=== PATIENT | male | born 1970 | race African-American/Black ===

== ENCOUNTER 2018-02-19 08:29 | Emergency (ER) | payer OTHER ==
[~2018-02-19] VITALS: Ht 177.8 cm; Wt 101.2 kg
[~2018-02-19 08:29] MED LIST: ATOR40TA59 PO; FAMO20TA5 PO; INSU100I17 SQ; INSU100I27 SQ
[2018-02-19 09:14] VITALS: BP 159/93
--- NOTE | 2018-02-19 09:23 | PHYS DOC ---
Past Medical History Past Medical History: Diabetes-Type II Past Surgical History: Other Additional Past Surgical Histo: LEFT SHOULDER SX, VASECTOMY Alcohol Use: Occasionally Drug Use: None Adult General Chief Complaint Chief Complaint: LOWER EXT PAIN HPI HPI Patient is a 47 year old male who presents with right knee pain started last night and melena night and him up. His pain a 10 out of 10 and states is worse with movement. He states that 6 months ago he had tendinitis in that knee was fine after it healed. Patient denies any injury or any new activity. Patient takes insulin, towards the statin, famotidine and states that his kidneys are starting to fail so he is unable to take any pain medicine. Patient states he is needing a work excuse. Review of Systems Review of Systems Constitutional: Denies fever or chills [] Eyes: Denies change in visual acuity, redness, or eye pain [] HENT: Denies nasal congestion or sore throat [] Respiratory: Denies cough or shortness of breath [] Cardiovascular: No additional information not addressed in HPI [] GI: Denies abdominal pain, nausea, vomiting, bloody stools or diarrhea [] : Denies dysuria or hematuria [] Musculoskeletal: Denies back pain. Right knee joint pain [] Integument: Denies rash or skin lesions [] Neurologic: Denies headache, focal weakness or sensory changes [] Endocrine: Denies polyuria or polydipsia [] All other systems were reviewed and found to be within normal limits, except as documented in this note. Current Medications Current Medications Current Medications Medications (Trade) Dose Ordered Sig/Mumtaz Start Time Stop Time Status Last Admin Dose Admin Dexamethasone (Decadron) 8 mg 1X ONCE 02/19/18 09:30 02/19/18 09:37 DC 02/19/18 09:42 8 MG Allergies Allergies Allergies Coded Allergies Type Severity Reaction Last Updated Verified No Known Drug Allergies 05/04/17 No Physical Exam Physical Exam Constitutional: Well developed, well nourished, no acute distress, non-toxic appearance. [] HENT: Normocephalic, atraumatic, bilateral external ears normal, oropharynx moist, no oral exudates, nose normal. [] Eyes: PERRLA, EOMI, conjunctiva normal, no discharge. [] Neck: Normal range of motion, no tenderness, supple, no stridor. [] Cardiovascular:Heart rate regular rhythm, no murmur [] Lungs & Thorax: Bilateral breath sounds clear to auscultation [] Abdomen: Bowel sounds normal, soft, no tenderness, no masses, no pulsatile masses. [] Skin: Warm, dry, no erythema, no rash. [] Back: No tenderness, no CVA tenderness. [] Extremities: No tenderness, no cyanosis, no clubbing, right knee ROM intact but painful, right knee 1-2+ edema. [] Neurologic: Alert and oriented X 3, normal motor function, normal sensory function, no focal deficits noted. [] Psychologic: Affect normal, judgement normal, mood normal. [] Current Patient Data Vital Signs Vital Signs Date Time Temp Pulse Resp B/P (MAP) Pulse Ox O2 Delivery O2 Flow Rate FiO2 02/19/18 09:14 98.1 72 18 159/93 (115) 97 Room Air 98.1 EKG EKG [] Radiology/Procedures Radiology/Procedures Right knee Impressions: [facility] [address] [place], [place] [id number] IMAGING REPORT Signed PATIENT: ANA PAULA WHEELER ACCOUNT: [id number] : 1970 LOCATION: ER AGE: 47 SEX: M EXAM STATUS: REG ER ORD. PHYSICIAN: JOSE M SOLOMON APRN REASON: pain, swelling PROCEDURE: KNEE RIGHT 4V Examination: 4 views of the right knee HISTORY: History of right knee pain, right knee tendinitis COMPARISON: None available FINDINGS: The alignment of the knee joint grossly appears unremarkable.Small knee joint effusion is identified. Minimal joint space loss identified in the medial compartment. There is no acute fracture or dislocation identified. IMPRESSION: 1. No acute osseous findings. Small knee joint effusion. 2. Mild degenerative changes medial compartment. Electronically signed by: Luis Mon MD (02/19/2018 10:00 AM) [id number] DICTATED and SIGNED BY: LUIS MON MD DATE: 02/19/18 0954 Course & Med Decision Making Course & Med Decision Making Patient is a 47 year old male who presents with right knee pain started last night and melena night and him up. His pain a 10 out of 10 and states is worse with movement. He states that 6 months ago he had tendinitis in that knee was fine after it healed. Patient denies any injury or any new activity. Patient takes insulin, towards the statin, famotidine and states that his kidneys are starting to fail so he is unable to take any pain medicine. Patient states he is needing a work excuse. Return with steady gait. Patient drove himself to the ED today. Right knee is 1-2+ edema compared to the left knee. Patient can bend the knee and extend the knee but is painful. There is no ligament laxity. Popiteal pulse present. There is no pedal or ankle edema. Alert and oriented. Skin pink warm and dry. Joint is not hot to touch or red. Xray shows 1. No acute osseous findings. Small knee joint effusion. 2. Mild degenerative changes medial compartment. Patient follow-up with his primary care doctor. Try using ice. Dragon Disclaimer Dragon Disclaimer This electronic medical record was generated, in whole or in part, using a voice recognition dictation system. Departure Departure Impression: Primary Impression: Arthritis of knee Disposition: 01 HOME, SELF-CARE Condition: STABLE Referrals: UNKNOWN PCP NAME (PCP) Patient Instructions: Arthritis, Degenerative-Brief Additional Instructions: Call doctor today for follow-up care. Try using ice and elevation. JOSE M SOLOMON APRN Feb 19, 2018 09:23
[2018-02-19] MEDS ORDERED: DEXAMETHASONE 4 MG TABLET PO ONE (09:30)
--- NOTE | 2018-02-19 10:04 | RAD ---
Examination: 4 views of the right knee HISTORY: History of right knee pain, right knee tendinitis COMPARISON: None available FINDINGS: The alignment of the knee joint grossly appears unremarkable.Small knee joint effusion is identified. Minimal joint space loss identified in the medial compartment. There is no acute fracture or dislocation identified. IMPRESSION: 1. No acute osseous findings. Small knee joint effusion. 2. Mild degenerative changes medial compartment. Electronically signed by: Luis Mon MD (02/19/2018 10:00 AM) [facility]
== END 2018-02-19 10:22 | disposition home or self-care (01) ==
LOC: ER 08:29
DX: M17.11 Unilateral primary osteoarthritis, right knee (principal); E11.9 Type 2 diabetes mellitus without complications
CPT/HCPCS: 73564; 99283; J8540

== ENCOUNTER 2019-12-30 13:22 | Emergency (ER) | payer BC, OTHER ==
[~2019-12-30] VITALS: Ht 177.8 cm; Wt 98.0 kg
[2019-12-30 13:26] VITALS: BP 127/92
[2019-12-30] MEDS ORDERED: METH4TAB2 PO (13:31)
[2019-12-30] MEDS ORDERED: DIAZ5TAB PO (13:31)
[2019-12-30] MEDS ORDERED: DICL50TA2 PO (13:31)
[2019-12-30] MEDS ORDERED: NAPROXEN 500 MG TABLET PO STA (13:32)
--- NOTE | 2019-12-30 13:32 | PHYS DOC ---
Past Medical History Past Medical History: Diabetes-Type II Past Surgical History: Other Additional Past Surgical Histo: LEFT SHOULDER SX, VASECTOMY Smoking Status: Never Smoker Alcohol Use: Occasionally Drug Use: None General Adult EDM: Chief Complaint: NECK PAIN HPI: HPI: Patient is a 49 year [id number] male patient presenting to the ED today with mild posterior and left lateral neck pain that began this morning when he got up. Patient states the pain is worse when rotating his neck to the left side. Denies any fever, denies any nausea vomiting. Denies any injuries. Denies any pain radiating to bilateral upper extremities no numbness or tingling to bilate ral upper extremities. He states the pain got worse today at work and had to come to the emergency room. Review of Systems: Review of Systems: Constitutional: Denies fever or chills. [] Musculoskeletal: Reports neck pain Integument: Denies rash. [] Neurologic: Denies headache, focal weakness or sensory changes. [] Psychiatric: Denies depression or anxiety. [] Heart Score: Risk Factors: Risk Factors: DM, Current or recent (<one month) smoker, HTN, HLP, family h istory of CAD, obesity. Risk Scores: Score 0 - 3: 2.5% MACE over next 6 weeks - Discharge Home Score 4 - 6: 20.3% MACE over next 6 weeks - Admit for Clinical Observation Score 7 - 10: 72.7% MACE over next 6 weeks - Early Invasive Strategies Allergies: Allergies: Allergies Coded Allergies Type Severity Reaction Last Updated Verified No Known Drug Allergies 05/04/17 No Physical Exam: PE: Constitutional: Well developed, well nourished, no acute distress, non-toxic appearance. [] HENT: Normocephalic, atraumatic, bilateral external ears normal, oropharynx moist, no oral exudates, nose normal. [] Eyes: PERRLA, EOMI, conjunctiva normal, no discharge. [] Neck: No obvious cervical deformity noted, paraspinal muscles tenderness on palpation of the left lateral cervical spine no tenderness, supple, no stridor. [] Cardiovascular:Heart rate regular rhythm, no murmur [] Lungs & Thorax: Bilateral breath sounds clear to auscultation [] Abdomen: Bowel sounds normal, soft, no tenderness, no masses, no pulsatile masses. [] Skin: Warm, dry, no erythema, no rash. [] Back: No tenderness, no CVA tenderness. [] Extremities: No tenderness, no cyanosis, no clubbing, ROM intact, no edema. [] Neurologic: Alert and oriented X 3, normal motor function, normal sensory function, no focal deficits noted. [] Psychologic: Affect normal, judgement normal, mood normal. [] EKG: EKG: [] Radiology/Procedures: Radiology/Procedures: [] Course & Med Decision Making: Course & Med Decision Making Pertinent Labs and Imaging studies reviewed. (See chart for details) This is a 49-year-old male patient presenting to the ED today with neck pain consistent with torticollis. Provided information on managing his including the use of heating pad. Given prescription for Medrol Dosepak, Valium and diclofenac. Follow-up with PCP in 1 to 2 weeks Daniel Disclaimer: Daniel Disclaimer: This electronic medical record was generated, in whole or in part, using a voice recognition dictation system. Departure Departure Impression: Primary Impression: Torticollis Disposition: 01 DC HOME SELF CARE/HOMELESS Condition: STABLE Referrals: UNKNOWN PCP NAME (PCP) follow up with your doctor in 1-2 weeks Patient Instructions: Torticollis, Acute Additional Instructions: You were evaluated in the emergency room for neck pain. Please use a heating pad on your neck as needed for the pain. Take the prescribed medications as ordered. Follow-up with your doctor in 1 to 2 weeks Scripts Diclofenac Potassium (DICLOFENAC POTASSIUM) 50 Mg Tablet 1 TAB PO BID, #20 TAB 0 Refills Prov: JENNA LYLES APRN 12/30/19 Diazepam (VALIUM) 5 Mg Tablet 5 MG PO TID for muscle spasms, #15 TAB Prov: JENNA LYLES APRN 12/30/19 Methylprednisolone (MEDROL) 4 Mg Tab.ds.pk 1 PKG PO UD, #1 PKG Prov: JENNA LYLES APRN 12/30/19 JENNA LYLES APRN Dec 30, 2019 13:32
[2019-12-30] MEDS ORDERED: diazePAM 5 MG TABLET PO ONE (13:45)
[2019-12-30] MEDS ORDERED: HYDROcodone/APAP 5/325MG 1 TAB TABLET PO ONE (13:45)
== END 2019-12-30 13:51 | disposition home or self-care (01) ==
LOC: ER 13:22
DX: M43.6 Torticollis (principal); E11.9 Type 2 diabetes mellitus without complications
CPT/HCPCS: 99284